=== PATIENT | female | born 1975 | race Caucasian/White ===

== ENCOUNTER → 2018-07-27 10:13 | Outpatient (CLI) | payer MEDICAID | END | disposition home or self-care (01) | LOC: D.MRI 10:13 | DX: M25.511 Pain in right shoulder (principal); R93.89 Abnormal findings on diagnostic imaging of other specified body structures ==

== ENCOUNTER → 2018-08-30 09:45 | Outpatient (CLI) | payer MEDICAID ==
[2018-08-30 10:28] LABS: ALBUMIN 3.6 g/dL (3.4-5.0); ALKALINE PHOSPHATASE 93 U/L (46-116); ALT (SGPT) 31 U/L (10-68); BILIRUBIN - TOTAL 0.27 mg/dL (0.2-1.3); CALC OSMOLALITY 278 mosm/kg (275-300); CALCIUM 9.1 mg/dL (8.5-10.1); CARBON DIOXIDE 25.4 mmol/L (21.0-32.0); CHLORIDE - SERUM 103 mmol/L (98-107); CREATININE - SERUM 0.7 mg/dL (0.6-1.3); GLUCOSE 177 mg/dL (74-106); PHOSPHOROUS 3.7 mg/dL (2.5-4.9); POTASSIUM - SERUM 4.2 mmol/L (3.5-5.1); PROTEIN - SERUM 7.4 g/dL (6.4-8.2); SODIUM 138 mmol/L (136-145); UREA NITROGEN 11 mg/dL (7-18); eGFR NON AFRICAN AMERICAN > 90 mL/min (90-120)
[2018-08-30 10:32] LABS: BASOPHILS 0.1 % (0-2); EOSINOPHILS 1.6 % (0-7); HEMATOCRIT 38.7 % (36.0-48.0); HEMOGLOBIN 12.8 g/dL (12-16); IMMATURE GRANULOCYTES 0.2 % (0-5); LYMPHOCYTES 22.1 % (15-50); MCH 28.6 pg (26.0-34.0); MCHC 33.1 g/dL (31.0-37.0); MCV 86.6 fL (80.0-100.0); MEAN PLATELET VOLUME 8.4 fL (7.4-10.4); MONOCYTES 4.7 % (2-11); NEUTROPHILS 71.3 % (40-80); PLATELET COUNT 249 10x3/uL (130-400); RBC 4.47 10x6/uL (4.00-5.40); RDW 14.3 % (11.5-14.5); WBC 10.9 10x3/uL (4.8-10.8)
[2018-08-30 12:03] LABS: ERYTHROCYTE SEDIMENTATION RATE 22 mm/hr (0-20)
[2018-09-01 15:18] LABS: SPE - A/G RATIO 1.2 (0.7-1.7); SPE - ALBUMIN 3.8 g/dL (2.9-4.4); SPE - ALPHA-1 GLOBULIN 0.2 g/dL (0.0-0.4); SPE - ALPHA-2 GLOBULIN 0.8 g/dL (0.4-1.0); SPE - BETA GLOBULIN 1.2 g/dL (0.7-1.3); SPE - M-SPIKE Not Observed g/dL (Not Observed); UPE RAND - ALBUMIN 32.1 % (()); UPE RAND - ALPHA 1 GLOBULIN 13.5 % (()); UPE RAND - ALPHA 2 GLOBULIN 4.4 % (()); UPE RAND - BETA GLOBULIN 21.4 % (()); UPE RAND - GAMMA GLOBULIN 28.6 % (())
== END | disposition home or self-care (01) ==
LOC: D.NM 09:45
PROVIDERS: Orthopaedic Surgery
DX: Z12.89 Encounter for screening for malignant neoplasm of other sites (principal)